=== PATIENT | male | born 1955 | race Caucasian/White ===

== ENCOUNTER → 2020-05-08 12:40 | Outpatient (CLI) | payer OTHER, SELFPAY ==
[2020-05-09 22:55] LABS: COVID19 Sendout Not Detected (Not Detect)
== END ==
PROVIDERS: Family Provider Family Medicine; PCP Family Medicine; Visit Provider Physician Assistant
DX: Z11.59 Encounter for screening for other viral diseases (principal)
CPT/HCPCS: 87635

== ENCOUNTER → 2020-07-01 10:22 | Outpatient (CLI) | payer OTHER, SELFPAY ==
[2020-07-01 10:57] LABS: COVID19 -Nasal RAPID Negative (Negative)
== END ==
PROVIDERS: Family Provider Family Medicine; PCP Family Medicine; Visit Provider Physician Assistant
DX: Z11.59 Encounter for screening for other viral diseases (principal)
CPT/HCPCS: 87635

== ENCOUNTER 2021-09-26 10:15 | Emergency (ER) | payer OTHER, SELFPAY ==
[2021-09-26] VITALS (9 sets, daily range): BP systolic 131–181; BP diastolic 95–112; PULSE 93–181; RESP 15–25; TEMP 36.2; O2SAT 95–99; BMI 38.2
--- NOTE | 2021-09-26 10:23 | DI.RAD.S_ITS ---
PROCEDURE: XR CHEST 1V INDICATIONS: chest pain TECHNIQUE: One view of the chest was acquired. COMPARISON: None. FINDINGS: Surgical changes and devices: None. Lungs and pleura: Lungs are clear. No pleural effusions or pneumothorax. Mediastinum: Mediastinal contours appear normal. Heart size is normal. Bones and chest wall: No suspicious bony lesions. Overlying soft tissues appear unremarkable. IMPRESSION: No acute process. Dictated by: Jorge Quinones M.D. on 09/26/2021 at 10:36 Approved by: Jorge Quinones M.D. on 09/26/2021 at 10:37
[2021-09-26 10:36] LABS: Add Manual Diff / Slide Review NO; Basophils Absolute Auto 0 /uL (0-100); Basophils Percent Auto 0.4 % (0-2); Eosinophils Absolute Auto 200 /uL (0-450); Eosinophils Percent Auto 2.4 % (2-4); Hematocrit 47.7 % (41-53); Hemoglobin 16.5 g/dL (13.5-17.5); Lymphocytes Absolute Auto 2100 /uL (1100-4500); Lymphocytes Percent Auto 33.7 % (25-40); Mean Corpuscular HGB Conc 34.6 % (30-36); Mean Corpuscular Hemoglobin 34.1 PG (26-34); Mean Corpuscular Volume 98.6 fL (80-100); Monocytes Absolute Auto 700 /uL (0-900); Monocytes Percent Auto 10.8 % (3-14); Neutrophils Absolute Auto 3300 /uL (1500-7000); Neutrophils Percent Auto 52.7 % (50-75); Platelet Count 148 X10^3/uL (150-400); Red Blood Cell Count 4.83 X10^6/uL (4.5-5.9); Red Cell Distribution Width 13.8 % (11.6-14.8); White Blood Cell Count 6.3 X10^3/uL (4.5-11.0)
[2021-09-26 10:40] LABS: INR 1.6 (0.9-1.3); Prothrombin Time 17.5 SECONDS (10.1-12.7)
--- NOTE | 2021-09-26 10:44 | ED.ARRPALP ---
HPI - Arrhythmia/Palpitations General Chief Complaint: Arrhythmia/Palpitations Stated Complaint: Heart Palps Time Seen by Provider: 09/26/21 10:36 Source: patient Mode of arrival: Ambulatory Limitations: no limitations History of Present Illness HPI narrative: 66-year-old gentleman with a history of paroxysmal atrial fibrillation a number of cardioversions years ago followed by an ablation with no recurrent episodes of atrial fibrillation until this morning at 6:30 a.m. when he felt slight palpitations and a rapid heart rate. This was not associated with dyspnea, orthopnea, pain, dizziness, syncope, abdominal pain vomiting or diarrhea. He is currently anticoagulated on Xarelto and takes a small dose of losartan. Recently no increased exertional dyspnea, chest pain palpitations fevers cough or chills. Related Data Home Medications Medication Instructions Recorded Confirmed albuterol sulfate 90 mcg/actuation 2 inh INHALATION Q6HR PRN 09/26/21 09/26/21 aerosol inhaler cyanocobalamin (vitamin B-12) 1,000 mcg IM QMONTH 09/26/21 09/26/21 1,000 mcg/mL injection solution emtricitabine 200 mg-rilpivirine 1 tab PO DAILY 09/26/21 09/26/21 25 mg-tenofovir alafenam 25 mg tablet (Odefsey) losartan 25 mg tablet 25 mg PO BID 09/26/21 09/26/21 rivaroxaban 20 mg tablet (Xarelto) 20 mg PO DAILY 09/26/21 09/26/21 Previous Rx's Medication Instructions Recorded metoprolol succinate 25 mg 25 mg PO DAILY #30 tab 09/26/21 tablet,extended release 24 hr Allergies Allergy/AdvReac Type Severity Reaction Status Date / Time Sulfa (Sulfonamide Allergy Verified 09/26/21 10:29 Antibiotics) Review of Systems Review of Systems Narrative: Remainder of complete review of systems is otherwise unremarkable except for that included in the HPI. Patient History Medical History Afib Vitamin B deficiency Social History Smoking Status: Never smoker Smoking Status: Never smoker alcohol intake frequency: 0-2 drinks per day Substance Use Type: does not use Exam Narrative Exam Narrative: General: Healthy appearing, in no acute distress. Able to give a complete and coherent history. Well-nourished well-developed HEENT: Moist mucous membranes, normal sclera with reactive pupils, Neck: No JVD, supple Respiratory: Lungs are clear to auscultation, no wheezing no rales no rhonchi. Full and symmetrical air movement Cardiac: Rapid irregular rhythm with no murmurs no bruits. Converts to sinus rhythm during my exam Abdomen: Soft, nontender, good bowel tones, no flank pain Skin: Warm and dry, no rashes Neurologic: Grossly neurologically intact with no obvious asymmetries or abnormalities Extremities: No trauma, well perfused Psych: Cooperative, appropriate insight and affect Initial Vital Signs Initial Vital Signs: Vital Signs Temperature 97.1 F L 09/26/21 10:15 Pulse Rate 181 H 09/26/21 10:15 Respiratory Rate 20 09/26/21 10:15 Blood Pressure 181/96 H 09/26/21 10:15 Pulse Oximetry 99 09/26/21 10:15 Course Orders Ordered: ED Orders 09/26/21 10:18 EKG-12 Lead Stat 09/26/21 10:23 XR chest 1V Stat 09/26/21 10:25 COVID19 -Nasal swab/Pre-Proc Stat Complete Blood Count AUTO DIFF Stat Comprehensive Metabolic Panel Stat Lipase Stat Magnesium Stat NT-proBNP (BNP-Adult 18+) Stat Partial Thromboplastin Time Stat Prothrombin Time INR Stat TSH w/ Reflex to FT4 Stat Troponin & CK Cardiac Panel Stat Discontinued Medications Metoprolol Tartrate (Metoprolol Ir 25 Mg Tablet) 25 mg PO NOW ONE Stop: 09/26/21 10:55 Last Admin: 09/26/21 10:58 Dose: 25 mg Documented by: ABBI Vital Signs Vital signs: Vital Signs - 8 hr 09/26/21 10:15 09/26/21 10:22 09/26/21 10:30 Temperature 97.1 F L Pulse Rate 181 H 167 H 169 H Respiratory Rate 20 16 17 Blood Pressure 181/96 H 150/100 H Pulse Oximetry 99 98 96 09/26/21 10:45 09/26/21 10:51 09/26/21 11:00 Temperature Pulse Rate 164 H 109 H 108 H Respiratory Rate 25 H 18 24 Blood Pressure 147/112 H 136/109 H 146/107 H Pulse Oximetry 96 95 95 MDM - Arrhythmia/Palpitations Lab Data Result diagrams: 09/26/21 10:25 09/26/21 10:25 Labs: Lab Results 09/26/21 09/26/21 09/26/21 Range/Units 10:25 10:25 10:25 WBC 6.3 (4.5-11.0) X10^3/uL RBC 4.83 (4.5-5.9) X10^6/uL Hgb 16.5 (13.5-17.5) g/dL Hct 47.7 (41-53) % MCV 98.6 (80-100) fL MCH 34.1 H (26-34) PG MCHC 34.6 (30-36) % RDW 13.8 (11.6-14.8) % Plt Count 148 L (150-400) X10^3/uL Neut % (Auto) 52.7 (50-75) % Lymph % (Auto) 33.7 (25-40) % Nance % (Auto) 10.8 (3-14) % Eos % (Auto) 2.4 (2-4) % Baso % (Auto) 0.4 (0-2) % Neut # (Auto) 3300 (0030-4495) /uL Lymph # (Auto) 2100 (3232-8333) /uL Nance # (Auto) 700 (0-900) /uL Eos # (Auto) 200 (0-450) /uL Baso # (Auto) 0 (0-100) /uL PT 17.5 H (10.1-12.7) SECONDS INR 1.6 H (0.9-1.3) APTT (26.4-36.2) SECONDS Sodium 139 (137-145) mmol/L Potassium 4.3 (3.4-5.1) mmol/L Chloride 105 (98-107) mmol/L Carbon Dioxide 25 (22-32) mmol/L BUN 13 (9-20) mg/dL Creatinine 1.17 (0.66-1.25) mg/dL Estimated GFR > 60.0 (>60) mL/min BUN/Creatinine Ratio 11.1 (6-22) Glucose 108 (80-110) mg/dL Calcium 9.6 (8.4-10.2) mg/dL Magnesium (1.6-2.3) mg/dL Total Bilirubin 0.9 (0.2-1.3) mg/dL AST 29 (17-59) IU/L ALT 24 (<50) IU/L Alkaline Phosphatase 70 (38-126) U/L Total Creatine Kinase 122 (55-170) U/L CK-MB (CK-2) 1.11 (<2.37) ng/mL CK-MB (CK-2) Rel Index 0.9 L (1.5-5.0) % Troponin I < 0.012 (0.01-0.034) ng/mL NT-Pro-B Natriuret Pep (<125) pg/mL Total Protein 7.7 (6.3-8.2) g/dL Albumin 4.5 (3.5-5.0) g/dL Globulin 3.2 (1.7-4.1) g/dL Albumin/Globulin Ratio 1.4 (1.0-2.8) Lipase 49 (23-300) U/L TSH (0.47-4.68) uIU/mL SARS-CoV-2 (PCR) (Negative) 09/26/21 09/26/21 09/26/21 Range/Units 10:25 10:25 10:25 WBC (4.5-11.0) X10^3/uL RBC (4.5-5.9) X10^6/uL Hgb (13.5-17.5) g/dL Hct (41-53) % MCV (80-100) fL MCH (26-34) PG MCHC (30-36) % RDW (11.6-14.8) % Plt Count (150-400) X10^3/uL Neut % (Auto) (50-75) % Lymph % (Auto) (25-40) % Nance % (Auto) (3-14) % Eos % (Auto) (2-4) % Baso % (Auto) (0-2) % Neut # (Auto) (1177-5542) /uL Lymph # (Auto) (5510-6792) /uL Nance # (Auto) (0-900) /uL Eos # (Auto) (0-450) /uL Baso # (Auto) (0-100) /uL PT (10.1-12.7) SECONDS INR (0.9-1.3) APTT 40 H (26.4-36.2) SECONDS Sodium (137-145) mmol/L Potassium (3.4-5.1) mmol/L Chloride (98-107) mmol/L Carbon Dioxide (22-32) mmol/L BUN (9-20) mg/dL Creatinine (0.66-1.25) mg/dL Estimated GFR (>60) mL/min BUN/Creatinine Ratio (6-22) Glucose (80-110) mg/dL Calcium (8.4-10.2) mg/dL Magnesium 1.9 (1.6-2.3) mg/dL Total Bilirubin (0.2-1.3) mg/dL AST (17-59) IU/L ALT (<50) IU/L Alkaline Phosphatase (38-126) U/L Total Creatine Kinase (55-170) U/L CK-MB (CK-2) (<2.37) ng/mL CK-MB (CK-2) Rel Index (1.5-5.0) % Troponin I (0.01-0.034) ng/mL NT-Pro-B Natriuret Pep 35 (<125) pg/mL Total Protein (6.3-8.2) g/dL Albumin (3.5-5.0) g/dL Globulin (1.7-4.1) g/dL Albumin/Globulin Ratio (1.0-2.8) Lipase (23-300) U/L TSH 1.35 (0.47-4.68) uIU/mL SARS-CoV-2 (PCR) (Negative) 09/26/21 Range/Units 10:25 WBC (4.5-11.0) X10^3/uL RBC (4.5-5.9) X10^6/uL Hgb (13.5-17.5) g/dL Hct (41-53) % MCV (80-100) fL MCH (26-34) PG MCHC (30-36) % RDW (11.6-14.8) % Plt Count (150-400) X10^3/uL Neut % (Auto) (50-75) % Lymph % (Auto) (25-40) % Nance % (Auto) (3-14) % Eos % (Auto) (2-4) % Baso % (Auto) (0-2) % Neut # (Auto) (2689-0011) /uL Lymph # (Auto) (9617-6801) /uL Nance # (Auto) (0-900) /uL Eos # (Auto) (0-450) /uL Baso # (Auto) (0-100) /uL PT (10.1-12.7) SECONDS INR (0.9-1.3) APTT (26.4-36.2) SECONDS Sodium (137-145) mmol/L Potassium (3.4-5.1) mmol/L Chloride (98-107) mmol/L Carbon Dioxide (22-32) mmol/L BUN (9-20) mg/dL Creatinine (0.66-1.25) mg/dL Estimated GFR (>60) mL/min BUN/Creatinine Ratio (6-22) Glucose (80-110) mg/dL Calcium (8.4-10.2) mg/dL Magnesium (1.6-2.3) mg/dL Total Bilirubin (0.2-1.3) mg/dL AST (17-59) IU/L ALT (<50) IU/L Alkaline Phosphatase (38-126) U/L Total Creatine Kinase (55-170) U/L CK-MB (CK-2) (<2.37) ng/mL CK-MB (CK-2) Rel Index (1.5-5.0) % Troponin I (0.01-0.034) ng/mL NT-Pro-B Natriuret Pep (<125) pg/mL Total Protein (6.3-8.2) g/dL Albumin (3.5-5.0) g/dL Globulin (1.7-4.1) g/dL Albumin/Globulin Ratio (1.0-2.8) Lipase (23-300) U/L TSH (0.47-4.68) uIU/mL SARS-CoV-2 (PCR) Negative (Negative) Imaging Data Chest x-ray: Radiologist's Impresson: FINDINGS:? ? Surgical changes and devices:? None.? ? Lungs and pleura:? Lungs are clear.? No pleural effusions or pneumothorax.? ? Mediastinum:? Mediastinal contours appear normal.? Heart size is normal.? ? Bones and chest wall:? No suspicious bony lesions.? Overlying soft tissues appear unremarkable.? ? IMPRESSION:? No acute process. ? ? Dictated by: Jorge Quinones M.D. on 09/26/2021 at 10:36? ?? ECG Data Interpretation: 10:17 am Atrial fibrillation at a rate of [address] T wave abnormalities 10:59 Sinus tachycardia with occasional PVCs. Normal interval, normal axis No acute ischemic changes MDM Narrative Medical decision making narrative: 66-year-old gentleman with a history of paroxysmal atrial fibrillation continues on Xarelto after his ablation a number of years ago he has not had recurrent episodes and his metoprolol has been discontinued. He had a 4 hour episode of atrial fibrillation that spontaneously converted this morning. Not associated with symptoms other than the sensation of rapid heartbeat. Labs are reassuring normal with a normal troponin. At this point, he is safe for home discharge will have him continue all medications including Xarelto and add back in 25 mg of metoprolol succinate and ask him to follow-up with his primary care physician. He was planning to return to [facility] this afternoon have asked him to remain closer to acute medical care for the next 72 hours prior to rescheduling his flight to return back to work for 2 weeks. At this time he is safe for home discharge Discharge Plan Departure Patient Disposition: Home Clinical Impression: Atrial fibrillation Instructions: DI for Atrial Fibrillation Activity Restrictions/Additional Instructions: Thank you for coming in today You had a 4 hour episode of atrial fibrillation with rapid ventricular response. You spontaneously converted back to a regular sinus rhythm Your lab work was entirely reassuring. Electrolytes including magnesium, thyroid were all normal. There is no evidence of injury to your heart with this 4 hour episode of rapid rhythm. I am going to suggest that you restart your metoprolol and I have given you a prescription for this. I would recommend that you stay closer to medical care for at least the next 72 hours and continue your Xarelto. Please schedule an appointment with your wader boot top assembler to follow-up on this brief episode of atrial fibrillation. I have given you copies of your EKGs to share with your wader boot top assembler when you do follow-up. If you have recurrent symptoms or new findings, please return to the ER Prescriptions: New metoprolol succinate 25 mg tablet extended release 24 hr 25 mg PO DAILY Qty: 30 0RF No Action cyanocobalamin (vitamin B-12) 1,000 mcg/mL solution 1,000 mcg IM QMONTH 0RF losartan 25 mg tablet 25 mg PO BID 0RF albuterol sulfate 90 mcg/actuation HFA aerosol inhaler 2 inh INHALATION Q6HR PRN (Reason: Wheezing) 0RF Xarelto 20 mg tablet 20 mg PO DAILY 0RF Label Comments: TAKE 1 TABLET BY MOUTH DAILY Odefsey 200-25-25 mg tablet 1 tab PO DAILY 0RF Label Comments: TAKE 1 TABLET BY MOUTH DAILY WITH FOOD Referrals: Gila Ureña, [facility] [Family Provider] -
[2021-09-26 10:46] LABS: Alanine Aminotransferase 24 IU/L (<50); Albumin 4.5 g/dL (3.5-5.0); Albumin Globulin Ratio 1.4 (1.0-2.8); Alkaline Phosphatase 70 U/L (38-126); Aspartate Aminotransferase 29 IU/L (17-59); BUN Creatinine Ratio 11.1 (6-22); Bilirubin Total 0.9 mg/dL (0.2-1.3); Blood Urea Nitrogen 13 mg/dL (9-20); COVID19 -Nasal RAPID Negative (Negative); Calcium 9.6 mg/dL (8.4-10.2); Carbon Dioxide 25 mmol/L (22-32); Chloride 105 mmol/L (98-107); Creatine Kinase 122 U/L (55-170); Estimated Glomerular Filt Rate > 60.0 mL/min (>60); Globulin 3.2 g/dL (1.7-4.1); Glucose 108 mg/dL (80-110); HEMOLYSIS < 15 (0-50); Lipase 49 U/L (23-300); Magnesium 1.9 mg/dL (1.6-2.3); Potassium 4.3 mmol/L (3.4-5.1); Sodium 139 mmol/L (137-145); Total Protein 7.7 g/dL (6.3-8.2)
[2021-09-26 10:48] LABS: PTT Partial Thromboplastin Tim 40 SECONDS (26.4-36.2)
[2021-09-26 10:56] LABS: NT-proBNP (BNP-Adult 18+) 35 pg/mL (<125)
[2021-09-26 10:57] LABS: Troponin I < 0.012 ng/mL (0.01-0.034)
[2021-09-26] MEDS: METOPROLOL IR 25 MG TABLET PO (10:58)
[2021-09-26 11:01] LABS: CKMB % Relative Index 0.9 % (1.5-5.0); Creatine Kinase MB 1.11 ng/mL (<2.37)
--- NOTE | 2021-09-26 11:01 | PC.NURSE ---
Pt self converted while having a conversation with Dr. Neal. No symptoms at this time. HR 107
[2021-09-26 11:37] LABS: TSH w/ Reflex to FT4 1.35 uIU/mL (0.47-4.68)
== END 2021-09-26 12:03 | disposition home or self-care (01) ==
PROVIDERS: Emergency Provider Emergency Medicine; Family Provider Family Medicine
DX: I48.91 Unspecified atrial fibrillation (principal); Z79.01 Long term (current) use of anticoagulants; Z20.822 Contact with and (suspected) exposure to COVID-19
CPT/HCPCS: 36415; 71045; 80053; 82550; 82553; 83690; 83735; 83880; 84443; 84484; 85025; 85610; 85730; 87635; 93005; 93010; 99284; C9803

== ENCOUNTER 2022-06-14 14:40 | Emergency (ER) | payer MEDICARE, OTHER, SELFPAY ==
[2022-06-14 14:59] VITALS: BP 162/97; PULSE 83; RESP 16; TEMP 36.4; O2SAT 98; BMI 33.0
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
[2022-06-14 17:52] LABS: Ictotest Urine Negative (Negative)
[2022-06-14 17:55] VITALS: PULSE 77; O2SAT 99
[2022-06-14 17:58] VITALS: BP 172/95; PULSE 73; RESP 15; O2SAT 99
[2022-06-14 18:00] VITALS: BP 161/90; PULSE 70; RESP 14; O2SAT 99
[2022-06-14 18:04] LABS: Bacteria Urine Occasional (0-1); Culture Indicated Urine Specimen Cultured; Mucus Urine 1+ (Negative); RBC Urine 5-10/HPF (0-5/HPF); Squamous Epithelial Cell Urine 0-1 /HPF (0-5/HPF); WBC Urine 5-10/HPF (0-5/HPF)
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
[2022-06-14 18:34] VITALS: O2SAT 95
[2022-06-14 18:45] LABS: Add Manual Diff / Slide Review NO; Basophils Absolute Auto 0 /uL (0-100); Basophils Percent Auto 0.2 % (0-2); Eosinophils Absolute Auto 100 /uL (0-450); Eosinophils Percent Auto 1.7 % (2-4); Hematocrit 46.5 % (41-53); Hemoglobin 15.9 g/dL (13.5-17.5); Lymphocytes Absolute Auto 1900 /uL (1100-4500); Lymphocytes Percent Auto 30.8 % (25-40); Mean Corpuscular HGB Conc 34.3 % (30-36); Mean Corpuscular Hemoglobin 35.7 PG (26-34); Monocytes Absolute Auto 800 /uL (0-900); Monocytes Percent Auto 12.8 % (3-14); Neutrophils Absolute Auto 3300 /uL (1500-7000); Neutrophils Percent Auto 54.5 % (50-75); Platelet Count 149 X10^3/uL (150-400); Red Blood Cell Count 4.47 X10^6/uL (4.5-5.9); Red Cell Distribution Width 13.4 % (11.6-14.8); White Blood Cell Count 6.1 X10^3/uL (4.5-11.0)
[2022-06-14 18:54] LABS: Alanine Aminotransferase 31 IU/L (<50); Albumin 4.3 g/dL (3.5-5.0); Albumin Globulin Ratio 1.3 (1.0-2.8); Alkaline Phosphatase 71 U/L (38-126); Aspartate Aminotransferase 36 IU/L (17-59); BUN Creatinine Ratio 12.9 (6-22); Bilirubin Total 1.1 mg/dL (0.2-1.3); Blood Urea Nitrogen 13 mg/dL (9-20); Calcium 9.1 mg/dL (8.4-10.2); Carbon Dioxide 28 mmol/L (22-32); Chloride 103 mmol/L (98-107); Estimated Glomerular Filt Rate > 60 mL/min (>60); Globulin 3.2 g/dL (1.7-4.1); Glucose 102 mg/dL (80-110); HEMOLYSIS < 15 (0-50); Lipase 43 U/L (23-300); Potassium 4.2 mmol/L (3.4-5.1); Sodium 138 mmol/L (137-145); Total Protein 7.5 g/dL (6.3-8.2)
[2022-06-14 19:00] VITALS: PULSE 76; RESP 14; O2SAT 98
== END 2022-06-14 19:21 | disposition home or self-care (01) ==
PROVIDERS: Emergency Medicine; Emergency Provider Nurse Practitioner Critical Care Medicine; Family Provider Family Medicine
DX: S09.90XA Unspecified injury of head, initial encounter (principal); R10.13 Epigastric pain; S00.01XA Abrasion of scalp, initial encounter; V86.99XA Unspecified occupant of other special all-terrain or other off-road motor vehicle injured in nontraffic accident, initial encounter
CPT/HCPCS: 36415; 70450; 71046; 72125; 74177; 80053; 81003; 81015; 83605; 83690; 85025; 87086; 99284; Q9967